=== PATIENT | female | born 1955 | race Two or more races ===

== ENCOUNTER 2020-04-20 09:17 | Inpatient (IN) | payer MEDICAID, OTHER ==
[~2020-04-20] VITALS: Ht 167.6 cm; Wt 70.3 kg
[2020-04-20 09:50] LABS: Basophils # (auto) 0 10 ^3/uL (0-0.2); Basophils % (auto) 0.7 % (0.0-2.0); Eosinophils # (auto) 0.1 10 ^3/uL (0-0.8); Hematocrit 41.6 % (36.0-46.0); Hemoglobin 13.9 g/dL (12.2-16.2); Lymphocytes # (auto) 1.4 10 ^3/uL (0.4-5.4); Lymphocytes % (auto) 29.3 % (10.0-50.0); Mean Corpuscular Hemoglobin 28.1 pg (28.0-32.0); Mean Corpuscular Hgb Conc. 33.4 g/dL (32.0-36.0); Mean Corpuscular Volume 84.3 fL (80.0-100.0); Monocytes # (auto) 0.3 10 ^3/uL (0-1.3); Monocytes % (auto) 5.3 % (0.0-12.0); Neutrophils # (auto) 3.1 10 ^3/uL (1.6-8.6); Neutrophils % (auto) 62.7 % (37.0-80.0); Nucleated Red Blood Cells % 0.2 %; Platelet Count (auto) 246 10^3/uL (140-450); Red Blood Cells 4.93 10^6/uL (4.0-5.20); Red Cell Distribution Width 13.7 % (11.8-14.3); White Blood Cell 4.9 10^3/uL (4.4-10.8)
[2020-04-20 10:04] LABS: Urine Bacteria NONE SEEN /hpf (None Seen); Urine Blood Negative /uL (Negative); Urine Mucus FEW (None Seen); Urine Specific Gravity 1.027 (1.001-1.035); Urine WBC 2 /hpf (0 - 5)
[2020-04-20 10:07] LABS: Chloride 109 mmol/L (98-107); Potassium 4.1 mmol/L (3.5-5.1); Sodium 140 mmol/L (136-145)
[2020-04-20 10:31] LABS: Alanine Aminotransferase 23 U/L (13-56); Albumin 3.7 g/dL (3.4-5.0); Alkaline Phosphatase 108 U/L (45-117); Anion Gap 3 (5-15); Aspartate Aminotransferase 18 U/L (15-37); BUN/Creatinine Ratio 18.9; Bilirubin, Total 0.6 mg/dL (0.2-1.0); Blood Urea Nitrogen 20 mg/dL (7-18); Calcium 8.7 mg/dL (8.5-10.1); Carbon Dioxide 28 mmol/L (21-32); GFR African American 68 mL/min; GFR Non-African American 56 mL/min; Glucose 147 mg/dL (74-106); Magnesium 2.4 mg/dL (1.6-2.6); Total Protein 7.4 g/dL (6.4-8.2)
[2020-04-20] MEDS ORDERED: ASPirin 81 mg TAB ONE (13:12)
[2020-04-20] MEDS ORDERED: ASPirin 81 mg TAB PO ONE (13:15)
[2020-04-20 13:20] LABS: INR 0.97 (0.9-1.15); Partial Thromboplastin Time 26.9 sec (23.0-31.2)
[2020-04-20] MEDS ORDERED: IOHEXOL 350 MG/ML 100ML IJ ONE (15:38)
[2020-04-20] MEDS ORDERED: ONDANSETRON HCL 4 MG/2 ML VIAL IV PRN (18:00)
[2020-04-20] MEDS ORDERED: ACETAMINOPHEN 325 MG TAB PO PRN (18:00)
[2020-04-20] MEDS ORDERED: NITROGLYCERIN 0.4 MG SL TAB SL PRN (18:00)
[2020-04-20] MEDS ORDERED: MORPHINE SULF INJ 2 MG/ML SYRINGE 1ML IV PRN ×2 (18:00)
[2020-04-20] MEDS ORDERED: hydrALAZINE HCL 20 MG/ML VL IV PRN (18:00)
[2020-04-20] MEDS ORDERED: HYDROcodone-ACET 5/325MG TAB PO PRN (18:00)
[2020-04-20] MEDS ORDERED: SODIUM CHLORIDE 0.9% 500 ML IV ONE (18:15)
[2020-04-20] MEDS: METOPROLOL TARTRATE 25 MG TAB PO SCH ×2 (18:19→21:39)
--- NOTE | 2020-04-20 21:05 | NUR ---
Telemetry admit from [facility] admitted to Telemetry unit after SBAR received. Patient oriented to Aure Snow, primary RN, unit, room, bed, and unit policies regarding patient care and visiting hours. Patient now on continuous telemetry monitoring, tele box # [id number] and telemetry reading on arrival to unit is SR. Patient placed on bedside oxygen, weighed by bedscale and encouraged to call if they need something. All questions and concerns addressed, patient verbalized understanding.
--- NOTE | 2020-04-20 21:40 | NUR ---
Scheduled 22:00 Lopressor already given in ER at 18:19. Current BP of 122/83 and HR 64. Will continue to monitor.
[2020-04-20 22:00] VITALS: BP 122/83
[2020-04-20] MEDS ORDERED: ATOR1TAB PO (23:34)
[2020-04-20] MEDS ORDERED: LISI-646 PO (23:34)
[2020-04-20] MEDS ORDERED: ASPI-543 PO (23:34)
[2020-04-20] MEDS ORDERED: NIFE90TA49 PO (23:34)
[2020-04-20] MEDS ORDERED: HYDR25TA4 PO (23:34)
[2020-04-20] MEDS ORDERED: PROP10TA57 PO (23:34)
[2020-04-20] MEDS ORDERED: LEVO25TA6 PO (23:34)
[2020-04-20] MEDS ORDERED: METF-370 PO (23:34)
[2020-04-20] MEDS ORDERED: CITA-77 PO (23:34)
[2020-04-21 05:00] VITALS: BP 101/73
--- NOTE | 2020-04-21 07:33 | NUR ---
REPORT RECEIVED FROM [facility] SHIFT RN, PATIENT ALERT AND ORIENTED X4, [place] SPEAKER ONLY. DENIES PAIN, NO SOB OR S/S DISTRESS NOTED. PLAN OF CARE DISCUSSED. BED IN LOCKED AND LOWEST POSITION. CALL LIGHT AND PHONE WITHIN REACH. WILL CONTINUE TO MONITOR Q1HR AND PRN.
[2020-04-21 08:00] VITALS: BP 113/76
[2020-04-21 08:51] VITALS: BP 113/76
[2020-04-21] MEDS: METOPROLOL TARTRATE 25 MG TAB PO SCH (09:56)
--- NOTE | 2020-04-21 10:10 | NUR ---
SPOKE TO PATIENT'S DTR AARON AND UPDATED HER ON PATIENT'S PLAN OF CARE.
--- NOTE | 2020-04-21 11:30 | NUR ---
DR. GASTON AT BEDSIDE, DISCUSSED PLAN OF CARE. MD CURRENTLY AWAITING CARDIO CONSULT WITH DR. MATTHEW. PER MD IF DR. MATTHEW DOES NOT SEE PATIENT BY 1300. UPGRADE DIET TO CARDIAC DIET.
[2020-04-21 13:00] VITALS: BP 124/72
[2020-04-21 16:53] VITALS: BP 135/73
[2020-04-21 17:55] VITALS: BP 124/72
--- NOTE | 2020-04-21 19:15 | NUR ---
ENDORSED DISCHARGE TO NOC SHIFT RN. PATIENT ALREADY SIGNED ALL PAPER WORK. IV DISCONTINUED. AWAITING FAMILY FOR PICKUP.
--- NOTE | 2020-04-21 19:20 | NUR ---
Received report from SHARMILA Ariza. 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 IV removed, tele removed and sent down to Tele monitors at this time.
--- NOTE | 2020-04-21 19:37 | NUR ---
Patient off unit. Patient taken down in wheelchair to family waiting in front of hospital. All belongings and paperwork with patient.
== END 2020-04-21 19:37 | disposition home or self-care (01) | DRG 203 ==
LOC: ER 09:17 → TELE 09:18 → TELE-WESTW 20:05
PROVIDERS: ADMIT Internal Medicine; ATTEND Internal Medicine
DX: R07.89 Other chest pain (principal); E78.5 Hyperlipidemia, unspecified; I10 Essential (primary) hypertension; Z82.49 Family history of ischemic heart disease and other diseases of the circulatory system; Z83.3 Family history of diabetes mellitus; Z90.710 Acquired absence of both cervix and uterus
CPT/HCPCS: 36415; 71046; 71275; 80053; 81001; 83735; 83880; 84443; 84484; 85025; 85379; 85610; 85730; 93005; 93306; 96360; G0378